=== PATIENT | female | born 1965 | race Caucasian/White ===

== ENCOUNTER → 2017-11-10 | Outpatient (CLI) | payer OTHER ==
[2017-11-10 15:12] LABS: ANION GAP 11 (8-16); BLOOD UREA NITROGEN 12 mg/dl (7-20); CALCIUM 8.9 mg/dl (8.4-10.2); CARBON DIOXIDE 24 mmol/L (21-31); CHLORIDE 107 mmol/L (97-110); CREATININE 0.61 mg/dl (0.44-1.00); GLUCOSE 93 mg/dl (70-220); POTASSIUM 4.1 mmol/L (3.5-5.1); SODIUM 138 mmol/L (135-144)
== END | disposition home or self-care (01) ==
LOC: LAB 14:16
DX: R07.9 Chest pain, unspecified (principal)
CPT/HCPCS: 80048

== ENCOUNTER → 2017-11-30 | Outpatient (CLI) | payer OTHER ==
[~2017-11-30] MED LIST: ATROPINE 1 MG/10 ML SYRINGE; METOPROLOL 5 MG INJ
[2017-11-30] MEDS: SOD CHLORIDE 0.9% 100 ML (10:36)
[2017-11-30] MEDS: IOHEXOL 100 ML (10:37)
== END | disposition home or self-care (01) ==
LOC: C/S 09:17
DX: R07.9 Chest pain, unspecified (principal)
CPT/HCPCS: 75571; 75574

== ENCOUNTER 2018-07-19 07:01 | Day surgery (SDC) | payer OTHER ==
[2018-07-19] MEDS ORDERED: MIDAZOLAM 1 MG/ML 2 ML INJ ×3 (11:15)
[2018-07-19] MEDS ORDERED: FENTAnyl 50 MCG/ML VIAL (11:15)
== END 2018-07-19 12:44 | disposition home or self-care (01) ==
LOC: GIL 07:01
DX: Z12.11 Encounter for screening for malignant neoplasm of colon (principal); K64.8 Other hemorrhoids
CPT/HCPCS: 45378; 84703